=== PATIENT | male | born 1940 | race Caucasian/White ===

== ENCOUNTER 2021-09-17 19:39 | Emergency (ER) | payer MEDICARE ==
[~2021-09-17] VITALS: Ht 172.7 cm; Wt 110.0 kg
--- NOTE | 2021-09-17 19:59 | PHYS DOC ---
General Adult EDM: Chief Complaint: SHORTNESS OF BREATH HPI: HPI: 81-year-old male presents for evaluation of cough congestion and fever. Patient states approximately 10 to 12 days ago came into contact with a child at was positive for Covid. Patient states over the last week he has had a cough with minimal sputum production sinus congestion. Patient states everyone in the house has similar symptoms. Patient states 2 hours prior took his temperature and it was 100. Patient states he feels short of breath but states his shortness of breath is chronic and not worse than normal. Patient's oxygen saturation during my exam was 94-95% on room air. Review of Systems: Review of Systems: Review of systems: Constitutional symptoms-positive fever, no chills. Eyes- No Discharge, No Visual Loss Respiratory symptoms-positive shortness of breath, No wheezing, No Dyspnea on Exertion positive cough Cardiovascular Systems; No chest pain, No Palpitations, No syncope Gastrointestinal symptoms: NO abdominal pain, no nausea, no vomiting or diarrhea. Genitourinary symptoms: No dysuria. Musculoskeletal symptoms: No back pain No extremity pain. NEUROLOGICAL Symptoms: No headache, no generalized weakness; No focal Weakness Skin: No rash. HEENT positive sinus congestion positive nasal drainage Heart Score: C/O Chest Pain: N/A Risk Factors: Risk Factors: DM, Current or recent (<one month) smoker, HTN, HLP, family history of CAD, obesity. Risk Scores: Score 0 - 3: 2.5% MACE over next 6 weeks - Discharge Home Score 4 - 6: 20.3% MACE over next 6 weeks - Admit for Clinical Observation Score 7 - 10: 72.7% MACE over next 6 weeks - Early Invasive Strategies Allergies: Allergies: Allergies Coded Allergies Type Severity Reaction Last Updated Verified No Known Drug Allergies 09/17/21 No Physical Exam: PE: Constitutional: Well developed, well nourished, no acute distress, non-toxic appearance. [] HENT: Normocephalic, atraumatic, bilateral external ears normal, oropharynx moist, no oral exudates, nose normal. [] Eyes: PERRLA, EOMI, conjunctiva normal, no discharge. [] Neck: Normal range of motion, no tenderness, supple, no stridor. [] Cardiovascular:Heart rate regular rhythm, no murmur [] Lungs & Thorax: Bilateral breath sounds clear to auscultation [] Abdomen: Bowel sounds normal, soft, no tenderness, no masses, no pulsatile masses. [] Skin: Warm, dry, no erythema, no rash. [] Back: No tenderness, no CVA tenderness. [] Extremities: No tenderness, no cyanosis, no clubbing, ROM intact, no edema. [] Neurologic: Alert and oriented X 3, normal motor function, normal sensory function, no focal deficits noted. [] Psychologic: Affect normal, judgement normal, mood normal. [] EKG: EKG: [] Performed at 1956 Rate 95 Normal sinus rhythm No ST elevation No ST depression No acute [place] Radiology/Procedures: Radiology/Procedures: [] The cardiac silhouette and pulmonary vasculature are within normal limits. There is no focal consolidation, pleural effusion or pneumothorax. The visualized osseous structures are intact. Impression: The cardiac silhouette and pulmonary vasculature are within normal limits. There is no focal consolidation, pleural effusion or pneumothorax. The visualized osseous structures are intact. Course & Med Decision Making: Course & Med Decision Making Pertinent Labs and Imaging studies reviewed. (See chart for details) [] Patient was evaluated for chief complaint. Work-up consisted of laboratory analysis radiologic imaging and EKG. Results reviewed and discussed with patient. Patient is Covid positive. Patient found to have a creatinine greater than 2 discussed with family states a history of kidney dysfunction. Patient oxygen saturation on room air 93 to 95%. Chest x-ray no focal infiltrate patient was treated with 10 of Decadron. Patient given Covid precautions and Covid discharge instructions. Patient advised to advised to follow-up with primary care physician as needed. Patient to return to the ER if symptoms persist get worse or any new concerning symptoms arise. Adonay Disclaimer: Adonay Disclaimer: This electronic medical record was generated, in whole or in part, using a voice recognition dictation system. Departure Departure Impression: Primary Impression: COVID-19 Additional Impression: Renal insufficiency Disposition: HOME / SELF CARE / HOMELESS Condition: STABLE Patient Instructions: Chronic Renal Insufficiency, Viral Infections Additional Instructions: You have been tested for or diagnosed with COVID-19. It is an infection caused by a new type of coronavirus. COVID-19 will cause cold-like or mild flu symptoms in most. It can cause more severe symptoms like problems breathing in some. There is no treatment for COVID-19. The body will clear the infection over time. Self-care will help to ease discomfort. Steps to Take: Self-Care Rest as needed. Healthy habits may help you feel better. Steps include: Choose healthy foods including fruits and vegetables. Drink water throughout the day. Get plenty of sleep each night. If you smoke, try to quit. It may ease breathing. Avoid alcohol. Keep Others Healthy The virus can spread to others. Droplets are released every time you sneeze or cough. The droplets can get into the mouth, nose, or eyes of people near you and lead to infection. To lower the chances of spreading COVID-19 to others: Stay at home until your doctor has said it is safe to leave. If you tested positive this will mean staying isolated until both of the following are true: At least 7 days have passed since the start of illness. You are free of fever for at least 72 hours without the use of medicine. During this time: - Avoid public areas, events, or transportation. Do not return to work or school until your doctor has said it is safe to do so. - Call ahead if you need to go to a medical center. Let them know you may have COVID-19. It will help them guide you where to go. They may also ask you to wear a facemask when you come to the office. - If you call for emergency medical services, let them know you may have COVID- 19. While at home: - Try to avoid close contact with others. Stay about 6 feet away. - If possible, spend most of your time in a separate room from others. - Use a face mask if you will be in close contact with others such as sharing a room or vehicle. - Have someone wipe down common surfaces in the home. Use household passenger representative every day on areas like doorknobs, counters, or sinks. - Cough or sneeze into a tissue. Throw the tissue away right after use. If a tissue is not available, cough or sneeze into your elbow. - Wash your hands often. Wash them after sneezing or coughing. Use soap and water and wash for at least 20 seconds. Alcohol based hand general cleaner can be used if soap and water is not available. - Do not prepare food for others. Avoid sharing personal items like forks, spoons, or toothbrushes. - Avoid close contact with pets while you are sick. There is no evidence of the virus passing to pets. This is a safety step until more is known about this virus. Isolation can be frustrating. Social interaction can help. Keep in touch with friends and family through phone and tech options. You can still interact with others in your home, just keep a safe distance of about 6 feet. Follow-up: Your doctors office will check in with you to see if there are any changes in your health. You may be asked to keep track of symptoms to share with them. They will also let you know when you are clear to be in public again. Problems to Look Out For: Contact your doctor if your recovery is not going as you expect. Get emergency care if you have problems such as: - Trouble breathing - Nonstop chest pain or pressure - Changes in awareness, confusion, or problems waking - Lips or face have bluish color - Worsening of symptoms If you think you have an emergency, call for emergency medical services right away. As taken from [facility] KEVYN AGUILAR I DO Sep 17, 2021 19:59
[2021-09-17 20:20] LABS: BASO % 1 % (0-3); EOS # 0.1 x10^3/uL (0.0-0.7); EOS % 1 % (0-3); HEMATOCRIT 31.5 % (39.0-53.0); HEMOGLOBIN 10.5 g/dL (13.0-17.5); LYMPH % 12 % (24-48); MEAN CORPUSCULAR HEMOGLOBIN 33 pg (25-35); MEAN CORPUSCULAR HGB CONC 34 g/dL (31-37); MEAN CORPUSCULAR VOLUME 99 fL (79-100); MONO % 12 % (0-9); NEUT % 75 % (31-73); PLATELET COUNT 200 x10^3/uL (140-400); RED BLOOD COUNT 3.17 x10^6/uL (4.30-5.70); RED CELL DISTRIBUTION WIDTH 15.6 % (11.5-14.5)
[2021-09-17 20:28] LABS: CALCIUM 8.7 mg/dL (8.5-10.1); CREATININE 2.6 mg/dL (0.7-1.3); GFR 23.8; POTASSIUM 4.7 mmol/L (3.5-5.1)
[2021-09-17 20:34] LABS: ALBUMIN 3.6 g/dL (3.4-5.0); TOTAL BILIRUBIN 0.6 mg/dL (0.2-1.0); TOTAL PROTEIN 7.2 g/dL (6.4-8.2)
--- NOTE | 2021-09-17 20:34 | RAD ---
Exam Date: 09/17/2021 8:01 PM XR CHEST 1V Indication: Reason: cough sob / Spl. Instructions: / History: . FINDINGS/ IMPRESSION: The cardiac silhouette and pulmonary vasculature are within normal limits. There is no focal consolidation, pleural effusion or pneumothorax. The visualized osseous structures are intact. Electronically signed by: Rhett Mata MD (09/17/2021 8:32 PM) [facility]
[2021-09-17] MEDS ORDERED: IV NORMAL SALINE 1000ML BAG 1,000 ML IV ONE (22:00)
[2021-09-17 22:50] VITALS: BP 106/57
[2021-09-17] MEDS ORDERED: DEXAMETHASONE SOD PHOS 4 MG/ML VIAL IVP ONE (23:00)
--- NOTE | 2021-09-18 02:23 | EKG ---
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
== END 2021-09-17 23:15 | disposition home or self-care (01) ==
LOC: ER 19:39
DX: U07.1 COVID-19 (principal); N28.9 Disorder of kidney and ureter, unspecified
CPT/HCPCS: 36415; 71045; 80053; 85025; 87426; 93005; 96361; 96374; 99284; J1100; J7030

== ENCOUNTER 2021-09-22 14:03 | Emergency (ER) | payer MEDICARE ==
[~2021-09-22] VITALS: Ht 172.7 cm; Wt 91.0 kg
[2021-09-22] MEDS ORDERED: ONDANSETRON PF 4 MG/2 ML VIAL. IVP ONE (14:45)
[2021-09-22 14:48] LABS: BASO % 0 % (0-3); EOS % 0 % (0-3); HEMATOCRIT 34.1 % (39.0-53.0); HEMOGLOBIN 11.5 g/dL (13.0-17.5); LYMPH # 0.9 x10^3/uL (1.0-4.8); LYMPH % 9 % (24-48); MEAN CORPUSCULAR HEMOGLOBIN 33 pg (25-35); MEAN CORPUSCULAR HGB CONC 34 g/dL (31-37); MEAN CORPUSCULAR VOLUME 98 fL (79-100); MONO # 0.7 x10^3/uL (0.0-1.1); MONO % 7 % (0-9); NEUT # 8.3 x10^3/uL (1.8-7.7); NEUT % 83 % (31-73); PLATELET COUNT 240 x10^3/uL (140-400); RED BLOOD COUNT 3.47 x10^6/uL (4.30-5.70); RED CELL DISTRIBUTION WIDTH 15.8 % (11.5-14.5)
[2021-09-22 14:55] LABS: CALCIUM 8.6 mg/dL (8.5-10.1); GFR 20.2; POTASSIUM 4.8 mmol/L (3.5-5.1)
[2021-09-22] MEDS ORDERED: ALBUTEROL SULFATE 2.5 MG/3 ML NEBU. NEB ONE (15:00)
[2021-09-22 15:01] LABS: ALBUMIN 3.4 g/dL (3.4-5.0); ALBUMIN/GLOBULIN RATIO 0.8 (1.0-1.7); TOTAL BILIRUBIN 0.9 mg/dL (0.2-1.0); TOTAL PROTEIN 7.9 g/dL (6.4-8.2)
--- NOTE | 2021-09-22 15:01 | RAD ---
EXAM: Chest, single view. HISTORY: Shortness of breath. Covid 19. COMPARISON: 09/17/2021 FINDINGS: A frontal view of the chest is obtained. There is diffuse central predominant interstitial infiltrate. There is no pleural effusion or pneumothorax. The heart is normal in size. IMPRESSION: Diffuse central predominant interstitial infiltrate. Electronically signed by: Alesha Pina MD (09/22/2021 2:58 PM) [id number]
--- NOTE | 2021-09-22 15:13 | PHYS DOC ---
Past Medical History Past Surgical History: No Surgical History Smoking Status: Never Smoker Alcohol Use: None General Adult EDM: Chief Complaint: SHORTNESS OF BREATH HPI: HPI: Patient is a 81 year old known COVID-19 positive male who presents with worsening SOB. He reports associated malaise, dry cough, nausea and two episodes of vomiting. He reports dull thoracic pain that is worse with deep inspiration. He has not eaten nor drank much since his last visit to the ER 5 days ago, which he states is due to lack of desire not pain or other symptoms. He reports low grade fever around 99 F. Patient denies chest pressure, palpitations, p roductive cough, abdominal pain, diarrhea, constipation. Review of Systems: Review of Systems: Constitutional: See HPI Eyes: Denies change in visual acuity. HENT: Denies nasal congestion or sore throat. Respiratory: See HPI Cardiovascular: See HPI GI: See HPI : Denies dysuria or hematuria. Musculoskeletal: Denies back pain or joint pain. Integument: Denies rash or other skin lesion. Neurologic: Denies headache, focal weakness or sensory changes. Heart Score: C/O Chest Pain: N/A Current Medications: Current Medications Medications (Trade) Dose Ordered Sig/Oswaldo Start Time Stop Time Status Last Admin Dose Admin Albuterol Sulfate (Ventolin Neb Soln) 5 mg 1X ONCE 09/22/21 15:00 09/22/21 15:02 DC Ondansetron HCl (Zofran) 4 mg 1X ONCE 09/22/21 14:45 09/22/21 14:46 DC Allergies: Allergies: Allergies Coded Allergies Type Severity Reaction Last Updated Verified No Known Drug Allergies 09/17/21 No Physical Exam: PE: Constitutional: Well developed, well nourished, no acute distress, appears fatigued. HENT: Normocephalic, atraumatic, bilateral external ears normal, oropharynx mois t, nose normal. Cardiovascular: Heart rate regular rhythm, no murmur. Lungs & Thorax: Bilateral breath sounds diminished but clear to auscultation. Abdomen: Bowel sounds normal, soft, no tenderness, no masses, no pulsatile masses. Skin: Warm, dry, no erythema, no rash. Extremities: No tenderness, no cyanosis, no clubbing, ROM intact, no edema. Neurologic: Alert and oriented x4, no focal deficits noted. Current Patient Data: Labs: Laboratory Tests Test 09/22/21 14:30 White Blood Count 10.0 x10^3/uL (4.0-11.0) Red Blood Count 3.47 x10^6/uL (4.30-5.70) L Hemoglobin 11.5 g/dL (13.0-17.5) L Hematocrit 34.1 % (39.0-53.0) L Mean Corpuscular Volume 98 fL (79-100) Mean Corpuscular Hemoglobin 33 pg (25-35) Mean Corpuscular Hemoglobin Concent 34 g/dL (31-37) Red Cell Distribution Width 15.8 % (11.5-14.5) H Platelet Count 240 x10^3/uL (140-400) Neutrophils (%) (Auto) 83 % (31-73) H Lymphocytes (%) (Auto) 9 % (24-48) L Monocytes (%) (Auto) 7 % (0-9) Eosinophils (%) (Auto) 0 % (0-3) Basophils (%) (Auto) 0 % (0-3) Neutrophils # (Auto) 8.3 x10^3/uL (1.8-7.7) H Lymphocytes # (Auto) 0.9 x10^3/uL (1.0-4.8) L Monocytes # (Auto) 0.7 x10^3/uL (0.0-1.1) Eosinophils # (Auto) 0.0 x10^3/uL (0.0-0.7) Basophils # (Auto) 0.0 x10^3/uL (0.0-0.2) Sodium Level 141 mmol/L (136-145) Potassium Level 4.8 mmol/L (3.5-5.1) Chloride Level 104 mmol/L (98-107) Carbon Dioxide Level 22 mmol/L (21-32) Anion Gap 15 (6-14) H Blood Urea Nitrogen 78 mg/dL (8-26) H Creatinine 3.0 mg/dL (0.7-1.3) H Estimated GFR (Cockcroft-Gault) 20.2 BUN/Creatinine Ratio 26 (6-20) H Glucose Level 164 mg/dL (70-99) H Calcium Level 8.6 mg/dL (8.5-10.1) Total Bilirubin 0.9 mg/dL (0.2-1.0) Aspartate Amino Transferase (AST) 41 U/L (15-37) H Alanine Aminotransferase (ALT) 39 U/L (16-63) Alkaline Phosphatase 105 U/L (46-116) Total Protein 7.9 g/dL (6.4-8.2) Albumin 3.4 g/dL (3.4-5.0) Albumin/Globulin Ratio 0.8 (1.0-1.7) L Lipase 77 U/L (73-393) Laboratory Tests 09/22/21 14:30 Laboratory Tests 09/22/21 14:30 Vital Signs: Vital Signs Date Time Temp Pulse Resp B/P (MAP) Pulse Ox O2 Delivery O2 Flow Rate FiO2 09/22/21 16:15 96 Room Air 09/22/21 16:10 127/58 (81) 95 Room Air 09/22/21 15:40 77 127/58 (81) 94 Room Air 09/22/21 15:10 78 114/56 (75) 98 Nasal Cannula 2.0 09/22/21 14:40 80 104/52 (69) 98 Nasal Cannula 2.0 09/22/21 14:15 98.5 88 20 117/69 (85) 93 Room Air 98.5 09/22/21 14:10 89 117/69 (85) 94 Room Air EKG: EKG: EKG Interpreted by Dr. Acuna at 1420: Regular rate and rhythm 90 bpm with no e ctopic beats. No concerning ST-T wave changes. TN interval 148 ms, QT interval 358 ms, QTC 442 ms. Radiology/Procedures: Radiology/Procedures: PROCEDURE: PORTABLE CHEST 1V EXAM: Chest, single view. HISTORY: Shortness of breath. Covid 19. COMPARISON: 09/17/2021 FINDINGS: A frontal view of the chest is obtained. There is diffuse central predominant interstitial infiltrate. There is no pleural effusion or pneumothorax. The heart is normal in size. IMPRESSION: Diffuse central predominant interstitial infiltrate. Electronically signed by: Alesha Pina MD (09/22/2021 2:58 PM) [id number] Course & Med Decision Making: Course & Med Decision Making Pertinent Labs and Imaging studies reviewed. (See chart for details) Patient's chief complaint is shortness of breath with known Covid positive diagnosis. Patient has completed 5-day course of Zithromax today. He has experienced increased work of breathing since he was diagnosed with COVID-19 5 days ago. Patient's oxygen saturation continues to be mid to high 90s on room air. Patient was briefly placed on 2 L nasal cannula prior to breathing treatment. Patient currently has an albuterol inhaler at home. Today, patient will be provided with incentive spirometer to encourage deep breathing prevent atelectasis and development of further pneumonia. Patient given strict return precautions. I spoke to patient's family on the phone, his granddaughter Kajal who is in employee here in the emergency department. Discussed discharge plan with her, who verbalized understanding and agreement as well. Dragon Disclaimer: Adonay Disclaimer: This electronic medical record was generated, in whole or in part, using a voice recognition dictation system. Departure Departure Impression: Primary Impression: Pneumonia due to COVID-19 virus Disposition: HOME / SELF CARE / HOMELESS Condition: STABLE Referrals: CARLY MARTINEZ (PCP) Patient Instructions: Incentive Spirometer, Pneumonia, Adult, [id number] Additional Instructions: You have been tested for or diagnosed with COVID-19. It is an infection caused by a new type of coronavirus. COVID-19 will cause cold-like or mild flu symptoms in most. It can cause more severe symptoms like problems breathing in some. There is no treatment for COVID-19. The body will clear the infection over time. Self-care will help to ease discomfort. Rest as needed. Healthy habits may help you feel better. Steps include: - Choose healthy foods including fruits and vegetables. Drink water throughout the day. - Get plenty of sleep each night. - If you smoke, try to quit. It may ease breathing. - Avoid alcohol. - Keep Others Healthy - The virus can spread to others. Droplets are released every time you sneeze or cough. The droplets can get into the mouth, nose, or eyes of people near you and lead to infection. To lower the chances of spreading COVID-19 to others: Stay at home until your doctor has said it is safe to leave. If you tested positive this will mean staying isolated until both of the following are true: - At least 7 days have passed since the start of illness. - You are free of fever for at least 72 hours without the use of medicine. During this time: - Avoid public areas, events, or transportation. Do not return to work or school until your doctor has said it is safe to do so. - Call ahead if you need to go to a medical center. Let them know you may have COVID-19. It will help them guide you where to go. They may also ask you to wear a facemask when you come to the office. - If you call for emergency medical services, let them know you may have COVID- 19. While at home: - Try to avoid close contact with others. Stay about 6 feet away. - If possible, spend most of your time in a separate room from others. - Use a face mask if you will be in close contact with others such as sharing a room or vehicle. - Have someone wipe down common surfaces in the home. Use household planning technician every day on areas like doorknobs, counters, or sinks. - Cough or sneeze into a tissue. Throw the tissue away right after use. If a tissue is not available, cough or sneeze into your elbow. - Wash your hands often. Wash them after sneezing or coughing. Use soap and water and wash for at least 20 seconds. Alcohol based hand mercury cell cleaner can be used if soap and water is not available. - Do not prepare food for others. Avoid sharing personal items like forks, spoons, or toothbrushes. - Avoid close contact with pets while you are sick. There is no evidence of the virus passing to pets. This is a safety step until more is known about this virus. Isolation can be frustrating. Social interaction can help. Keep in touch with friends and family through phone and tech options. You can still interact with others in your home, just keep a safe distance of about 6 feet. Follow-up: Your doctors office will check in with you to see if there are any changes in your health. You may be asked to keep track of symptoms to share with them. They will also let you know when you are clear to be in public again. Contact your doctor if your recovery is not going as you expect. Get emergency care if you have problems such as: - Trouble breathing with oxygen saturation less than 90% consistently - Nonstop chest pain or pressure - Changes in awareness, confusion, or problems waking - Lips or face have bluish color - Worsening of symptoms If you think you have an emergency, call for emergency medical services right away. As taken from [facility] Ondansetron (ONDANSETRON ODT) 4 Mg Tab.rapdis 1 TAB PO PRN Q6-8HRS, #16 TAB Prov: ELIDA MEYERS 09/22/21 ELIDA MEYERS Sep 22, 2021 15:13
[2021-09-22] MEDS ORDERED: IV NORMAL SALINE 1000ML BAG 1,000 ML IV ONE (15:30)
--- NOTE | 2021-09-22 15:44 | EKG ---
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
[2021-09-22] MEDS ORDERED: ONDA4TAB12 PO (17:34)
[2021-09-22 17:45] VITALS: BP 130/58
[2021-09-24] MEDS ORDERED: ASPI-630 PO (22:53)
[2021-09-24] MEDS ORDERED: LISI2.5T12 PO (22:53)
[2021-09-24] MEDS ORDERED: ATOR40TA59 PO (22:53)
[2021-09-24] MEDS ORDERED: INSU100V13 SQ (22:56)
[2021-09-24] MEDS ORDERED: TAMS0.4C97 PO (22:56)
[2021-09-24] MEDS ORDERED: ALLO100T PO (22:56)
== END 2021-09-22 18:05 | disposition home or self-care (01) ==
LOC: ER 14:03
DX: U07.1 COVID-19 (principal); J12.82 Pneumonia due to coronavirus disease 2019
CPT/HCPCS: 36415; 71045; 80053; 83605; 83690; 85025; 87040; 93005; 94640; 96361; 96374; 99283; J2405; J7030; J7613